=== PATIENT | female | born 1960 | race African-American/Black ===

== ENCOUNTER 2017-05-19 20:44 | Emergency (ER) | payer MEDICAID, OTHER ==
[~2017-05-19] VITALS: Ht 167.6 cm; Wt 50.3 kg
[~2017-05-19 20:44] MED LIST: *INS REG SQ; AMLO10TA2 PO; BENA40TA2 PO; HYDR-4077 PO; HYDR25TA4 PO; INSU100I19 SQ; METF10002 PO; METO-295 PO; NIFE60TA69 PO; NITR100C PO; OMEP20CA10 PO; PRAV40TA3 PO; TRAM50TA2 PO
--- NOTE | 2017-05-19 21:44 | NUR ---
PT BB RA FOR ABDOMINAL PAIN. PER PT NO BM X 1 WEEK. PER EMS BS 300. PT AOX3 RR EVEN AND UNLABORED. NO SOB NOTED. NAD NOTED. NO NVD AT THIS TIME. PT GOWNED AND PLACED ON MONITOR WAITING FOR MD ALARCON.
[2017-05-19] MEDS ORDERED: HYDROMORPHONE INJ 2 MG/ML DISP.SYRIN IV ONE (22:00)
[2017-05-19] MEDS ORDERED: IV NS 0.9% 1,000 ML BAG IV ONE (22:00)
[2017-05-19] MEDS ORDERED: ONDANSETRON HCL/PF 4 MG/2 ML VIAL IVP ONE (22:00)
[2017-05-19] MEDS ORDERED: ONDANSETRON HCL/PF 4 MG/2 ML VIAL ONE (22:15)
[2017-05-19] MEDS ORDERED: HYDROMORPHONE 1 MG/1 ML DISP.SYRIN ONE (22:16)
--- NOTE | 2017-05-19 22:31 | NUR ---
PT TO CT.
[2017-05-19 22:40] LABS: BASOPHILS % (AUTO) 0.1 % (0.0-2.0); EOSINOPHILS # (AUTO) 0.4 /CMM (0.0-0.7); EOSINOPHILS % (AUTO) 3.4 % (0.0-6.0); HEMATOCRIT 43 % (33-45); HEMOGLOBIN 13.6 g/dL (11.5-14.8); LYMPHOCYTES # (AUTO) 1.2 /CMM (0.8-4.8); LYMPHOCYTES % (AUTO) 10.5 % (20.0-44.0); MEAN CORPUSCULAR HEMOGLOBIN 28 PG (26.0-33.0); MEAN CORPUSCULAR HGB CONC 32 g/dl (31.0-36.0); MEAN CORPUSCULAR VOLUME 89 fL (82-100); MONOCYTES # (AUTO) 0.4 /CMM (0.1-1.30); MONOCYTES % (AUTO) 3.2 % (2.0-12.0); NEUTROPHILS # (AUTO) 9.8 /CMM (1.8-8.9); NEUTROPHILS % (AUTO) 82.8 % (43.0-81.0); PLATELET COUNT (AUTO) 262 /CMM (150-450); RDW COEFFICIENT OF VARIATION 14.4 (11.5-15.0); WHITE BLOOD COUNT (AUTO) 11.8 K/uL (4.3-11.0)
--- NOTE | 2017-05-19 22:50 | NUR ---
PT RETURNED FROM CT.
[2017-05-19 22:53] LABS: CALCIUM, SERUM 9.3 mg/dL (8.5-10.1); CREATININE 1.8 mg/dL (0.6-1.3); POTASSIUM 4.5 mmol/L (3.5-5.1)
[2017-05-19 22:56] LABS: INR 0.95 (0.87-1.13); PROTHROMBIN TIME 9.9 SECS (9.5-12.7)
[2017-05-19 23:06] LABS: ALBUMIN 3.4 g/dL (3.4-5.0); BILIRUBIN,DIRECT 0.2 mg/dL (0.0-0.2); BILIRUBIN,TOTAL 0.8 mg/dL (0.2-1.0); TOTAL PROTEIN, SERUM 8.7 g/dL (6.4-8.2)
[2017-05-20] MEDS ORDERED: IV NS 0.9% 1,000 ML BAG IV ONE (00:30)
[2017-05-20] MEDS ORDERED: LORAZEPAM INJ 2 MG/ML VIAL IV ONE (01:00)
[2017-05-20] MEDS ORDERED: LORAZEPAM INJ 2 MG/ML VIAL ONE (01:05)
--- NOTE | 2017-05-20 02:34 | NUR ---
DR. ESCUDERO AT BEDSIDE SPEAKING TO PT AND FAMILY REGARDING RESULTS.
--- NOTE | 2017-05-20 03:04 | NUR ---
IV removed. Catheter intact and site benign. Pressure and 4x4 applied to site. No bleeding noted. Patient discharged to home in stable condition. Written and verbal after care instructions given. Patient verbalizes understanding of instruction. ambulatory with a steady gait, pt w/c per request. instructed not to drive. pt verbalize understanding. accompanied by son
[2017-05-20 03:08] VITALS: BP 124/78
== END 2017-05-20 03:15 | disposition home or self-care (01) ==
LOC: ER 20:45
DX: K56.41 Fecal impaction (principal); E86.0 Dehydration; E11.65 Type 2 diabetes mellitus with hyperglycemia; R10.84 Generalized abdominal pain; M51.26 Other intervertebral disc displacement, lumbar region; M48.061 Spinal stenosis, lumbar region without neurogenic claudication; Z79.4 Long term (current) use of insulin; Z90.89 Acquired absence of other organs; Z88.5 Allergy status to narcotic agent
CPT/HCPCS: 36415; 74176; 80048; 80076; 82962; 83690; 85025; 85730; 96374; 96375; 96376; 99285; A4606; J1170; J2060; J2405; J7030 ×2; Z7610

== ENCOUNTER 2021-03-01 00:24 | Emergency (ER) | payer OTHER ==
[~2021-03-01] VITALS: Ht 162.6 cm; Wt 50.8 kg
[~2021-03-01 00:24] MED LIST changes: +AMLO-213 PO; -AMLO10TA2 PO; -BENA40TA2 PO; +BENA40TA8 PO; +METF-442 PO; -METF10002 PO; +NIFE-34 PO; -NIFE60TA69 PO; -OMEP20CA10 PO; +OMEP20CA15 PO
--- NOTE | 2021-03-01 00:35 | NUR ---
PT BIBPA FROM [facility] FOR C/O WORSENING LOWER BACK AND BLE PAIN. PLACED IN BED 11 ON MONITOR AND PULSE OX. VSS
[2021-03-01] MEDS ORDERED: HYDROMORPHONE 1 MG/1 ML DISP.SYRIN ONE (00:52)
[2021-03-01] MEDS ORDERED: HYDROMORPHONE 1 MG/1 ML DISP.SYRIN IM ONE (01:00)
--- NOTE | 2021-03-01 03:17 | NUR ---
[facility] CALLED FOR TRANSPORT. TRIP# [id number]
--- NOTE | 2021-03-01 03:25 | NUR ---
[facility] CALLED FOR TRANSPORT. ETA 1 HR.
--- NOTE | 2021-03-01 04:04 | NUR ---
CALLED NURSING FACILITY TO UPDATE RN REGARDING PT BEING DISCARGED. RN DID NOT GREY GOODS MARKER. WILL CALL BACK.
--- NOTE | 2021-03-01 04:11 | NUR ---
SPOKE TO COURTNEY LITTLEJOHN FOR DEBORA. AWARE PT WILL BE TRANSFERED BACK.
[2021-03-01 05:12] VITALS: BP 112/72
--- NOTE | 2021-03-01 05:12 | NUR ---
REPORT GIVEN TO EMT, PT TRANSFERED BACK TO FACILITY
[2021-03-01] MEDS ORDERED: ASCO500C17 PO (15:45)
[2021-03-01] MEDS ORDERED: MULT-447 PO (15:45)
[2021-03-01] MEDS ORDERED: SENN-211 PO (15:45)
[2021-03-01] MEDS ORDERED: HYDR100T27 PO (15:45)
[2021-03-01] MEDS ORDERED: TRAM50TA2 PO (15:45)
[2021-03-01] MEDS ORDERED: ONDA4TAB11 PO (15:45)
[2021-03-01] MEDS ORDERED: INSU100V7 SQ (15:45)
[2021-03-01] MEDS ORDERED: BISA10SU11 RC (15:45)
[2021-03-01] MEDS ORDERED: ACET325T53 PO (15:45)
[2021-03-01] MEDS ORDERED: CITR473S PO (15:45)
[2021-03-01] MEDS ORDERED: INSU100V30 IJ (15:45)
[2021-03-01] MEDS ORDERED: LACT1CAP26 PO (15:45)
[2021-03-01] MEDS ORDERED: ZINC220C6 PO (15:45)
[2021-03-01] MEDS ORDERED: AMLO10TA4 PO (15:45)
[2021-03-01] MEDS ORDERED: CALC667C6 PO (15:45)
[2021-03-01] MEDS ORDERED: FERR325T23 PO (15:45)
[2021-03-01] MEDS ORDERED: INSU100V10 SQ (15:45)
[2021-03-01] MEDS ORDERED: GLUC1KIT IJ (15:45)
[2021-03-01] MEDS ORDERED: LABE200T5 PO (15:45)
[2021-03-01] MEDS ORDERED: ATOR40TA PO (15:45)
[2021-03-01] MEDS ORDERED: ASPI-1169 PO (15:45)
[2021-03-01] MEDS ORDERED: FAMO-131 PO (15:45)
== END 2021-03-01 05:13 ==
LOC: ER 00:31
DX: M54.5 Low back pain (principal); G89.29 Other chronic pain; G30.9 Alzheimer's disease, unspecified; F02.80 Dementia in other diseases classified elsewhere, unspecified severity, without behavioral disturbance, psychotic disturbance, mood disturbance, and anxiety; Z20.822 Contact with and (suspected) exposure to COVID-19; M51.36 Other intervertebral disc degeneration, lumbar region; M48.061 Spinal stenosis, lumbar region without neurogenic claudication; E11.52 Type 2 diabetes mellitus with diabetic peripheral angiopathy with gangrene; E11.22 Type 2 diabetes mellitus with diabetic chronic kidney disease; I13.0 Hypertensive heart and chronic kidney disease with heart failure and stage 1 through stage 4 chronic kidney disease, or unspecified chronic kidney disease; N18.9 Chronic kidney disease, unspecified; I50.9 Heart failure, unspecified; Z79.4 Long term (current) use of insulin; K21.9 Gastro-esophageal reflux disease without esophagitis; J44.9 Chronic obstructive pulmonary disease, unspecified; I42.9 Cardiomyopathy, unspecified; G40.909 Epilepsy, unspecified, not intractable, without status epilepticus; Z79.899 Other long term (current) drug therapy
CPT/HCPCS: 71045; 72131; 87426; 96372; 99285; C9803; J1170

== ENCOUNTER 2021-03-01 14:01 | Inpatient (IN) | payer OTHER ==
[~2021-03-01] VITALS: Ht 162.6 cm; Wt 45.8 kg
[2021-03-01] MEDS ORDERED: IV NS 0.9% 500 ML BAG IV ONE (14:30)
[2021-03-01 14:43] LABS: BASOPHILS % (AUTO) 0.4 % (0.0-2.0); EOSINOPHILS % (AUTO) 1.9 % (0.0-6.0); HEMATOCRIT 25 % (33-45); HEMOGLOBIN 7.8 g/dL (11.5-14.8); LYMPHOCYTES # (AUTO) 1.8 K/uL (0.8-4.8); LYMPHOCYTES % (AUTO) 29.4 % (20.0-44.0); MEAN CORPUSCULAR HGB CONC 31 g/dl (31.0-36.0); MEAN CORPUSCULAR VOLUME 87 fL (82-100); MONOCYTES # (AUTO) 0.6 K/uL (0.1-1.30); MONOCYTES % (AUTO) 10.4 % (2.0-12.0); NEUTROPHILS # (AUTO) 3.5 K/uL (1.8-8.9); NEUTROPHILS % (AUTO) 57.9 % (43.0-81.0); PLATELET COUNT (AUTO) 332 K/uL (150-450); WHITE BLOOD COUNT (AUTO) 6.1 K/uL (4.3-11.0)
--- NOTE | 2021-03-01 14:46 | NUR ---
60 years old female sent to er from longterm for abnormal H/H and k level, vital stable lab drawn result pending.
[2021-03-01 14:50] LABS: CALCIUM, SERUM 8.8 mg/dL (8.5-10.1); CARBON DIOXIDE 23 mmol/L (21-32); CHLORIDE 104 mmol/L (98-107); CREATININE 3.7 mg/dL (0.6-1.3); GLUCOSE 109 mg/dL (74-106); POTASSIUM 5.7 mmol/L (3.5-5.1); SODIUM SERUM 136 mmol/L (136-145); UREA NITROGEN, BLOOD 79 mg/dL (7-18)
[2021-03-01 15:02] LABS: ALANINE AMINOTRANSFERASE 15 U/L (12-78); ALBUMIN 2.2 g/dL (3.4-5.0); ALKALINE PHOSPHATASE 93 U/L (46-116); ASPARTATE AMINOTRANSFERASE 15 U/L (15-37); BILIRUBIN,DIRECT 0.1 mg/dL (0.0-0.2); BILIRUBIN,TOTAL 0.2 mg/dL (0.2-1.0); LIPASE 30 U/L (73-393); TOTAL PROTEIN, SERUM 7.6 g/dL (6.4-8.2)
[2021-03-01] MEDS ORDERED: HYDR100T27 PO (15:45)
[2021-03-01] MEDS ORDERED: MULT-447 PO (15:45)
[2021-03-01] MEDS ORDERED: GLUC1KIT IJ (15:45)
[2021-03-01] MEDS ORDERED: INSU100V30 IJ (15:45)
[2021-03-01] MEDS ORDERED: SENN-211 PO (15:45)
[2021-03-01] MEDS ORDERED: ATOR40TA PO (15:45)
[2021-03-01] MEDS ORDERED: FAMO-131 PO (15:45)
[2021-03-01] MEDS ORDERED: INSU100V10 SQ (15:45)
[2021-03-01] MEDS ORDERED: BISA10SU11 RC (15:45)
[2021-03-01] MEDS ORDERED: ACET325T53 PO (15:45)
[2021-03-01] MEDS ORDERED: CALC667C6 PO (15:45)
[2021-03-01] MEDS ORDERED: ASPI-1169 PO (15:45)
[2021-03-01] MEDS ORDERED: INSU100V7 SQ (15:45)
[2021-03-01] MEDS ORDERED: AMLO10TA4 PO (15:45)
[2021-03-01] MEDS ORDERED: ASCO500C17 PO (15:45)
[2021-03-01] MEDS ORDERED: CITR473S PO (15:45)
[2021-03-01] MEDS ORDERED: LACT1CAP26 PO (15:45)
[2021-03-01] MEDS ORDERED: ONDA4TAB11 PO (15:45)
[2021-03-01] MEDS ORDERED: TRAM50TA2 PO (15:45)
[2021-03-01] MEDS ORDERED: LABE200T5 PO (15:45)
[2021-03-01] MEDS ORDERED: ZINC220C6 PO (15:45)
[2021-03-01] MEDS ORDERED: FERR325T23 PO (15:45)
--- NOTE | 2021-03-01 16:00 | NUR ---
MOVE SHEET SUBMITTED.
--- NOTE | 2021-03-01 16:50 | NUR ---
Dr Carrera visitsm patient at bedside awaiting for admit tele bed.
[2021-03-01] MEDS ORDERED: CEFTRIAXONE 1 G in IV D5W 50 ML IV ONE (17:00)
[2021-03-01] MEDS ORDERED: CEFTRIAXONE 1GM BAG (ER ONLY) 50 ML IV ONE (17:04)
[2021-03-01] MEDS ORDERED: MAGNESIUM HYDROXIDE 30 ML UDC PO PRN (17:30)
[2021-03-01] MEDS ORDERED: Z GUARD REMEDY 2 OZ OINT TP PRN (17:30)
[2021-03-01] MEDS ORDERED: ACETAMINOPHEN 325 MG TABLET PO PRN (17:30)
[2021-03-01] MEDS ORDERED: ONDANSETRON HCL/PF 4 MG/2 ML VIAL IVP PRN (17:30)
[2021-03-01] MEDS ORDERED: MAG HYDROX/AL HYDROX/SIMETH 30 ML UDC PO PRN (17:30)
[2021-03-01] MEDS: CEFTRIAXONE 1 G in IV D5W 50 ML IV SCH (17:30)
[2021-03-01] MEDS ORDERED: SODIUM POLYSTYRENE SULFONATE 15 G/60 ML BOTTLE ONE ×2 (18:22→21:52)
[2021-03-01] MEDS: SODIUM POLYSTYRENE SULFONATE 15 G/60 ML BOTTLE PO ONE ×2 (18:23→21:56)
[2021-03-01 18:29] LABS: IRON, SERUM 21 ug/dl (50-175); TOTAL IRON BINDING CAPACITY 179 ug/dl (250-450)
[2021-03-01] MEDS ORDERED: Calcium Gluconate 1GM/10ML 4.65 MEQ in IV D5W 50 ML IV ONE (18:30)
--- NOTE | 2021-03-01 19:03 | NUR ---
BED 101
--- NOTE | 2021-03-01 19:44 | NUR ---
REPORT GIVEN TO ELIZABETH LITTLEJOHN. PATIENT TO BE ADMITTED AT ROOM 111-2.
--- NOTE | 2021-03-01 19:53 | NUR ---
PER YASMANI, COVID SWAB RECEIVED BUT UNABLE TO RUN DUE TO MISSING PAPERWORK. DOCUMENT FOUND AND SENT TO LAB. PER TOYA LITTLEJOHN, PATIENT WAS HERE YESTERDAY, RAPID TEST WAS DONE AND RESULTED NEGATIVE.
--- NOTE | 2021-03-01 20:30 | NUR ---
PT TRANSFERRED TO TELE ROOM 111-1 VIA ACLS PROTOCOL. REPORT GIVEN TO ELIZABETH LITTLEJOHN FOR CONTINUATION OF CARE
--- NOTE | 2021-03-01 20:30 | NUR ---
Fundraising Officer notes Admitted 60 y/o female a/ox4 able to make needs known [facility] ,on room air sating 100% on room air tele monitor at sr on the monitor .no sob no distress noted , under the service of dr busch. all needs attended too .v/s stable afebrile. admission routine care rendered, with admitting dx of acute renal failure.on ivf of 1/2 ns at 75cc/hr infusing well with left fa g#20 intact and patent , turn and reposition ,all due meds given as ordered .potassium of 5.7 kayexelate 30 grams given as ordered . will continue to monitor pts.
[2021-03-01 20:55] VITALS: BP 145/63
[2021-03-01] MEDS: IV 1/2NS 1000 ML 1,000 ML IV PRN (21:12)
[2021-03-01] MEDS: SODIUM POLYSTYRENE SULF. PWD 15 GM UDC PO ONE (21:16)
[2021-03-01] MEDS: CALCIUM ACETATE 667 MG TABLET PO SCH (21:16)
[2021-03-01] MEDS: TRAMADOL HCL 50 MG TABLET PO PRN (21:24)
[2021-03-02] VITALS: BP 129/71
[2021-03-02 04:00] VITALS: BP 126/40
[2021-03-02 06:38] LABS: BASOPHILS # (AUTO) 0.1 K/uL (0.0-0.2); BASOPHILS % (AUTO) 0.9 % (0.0-2.0); EOSINOPHILS % (AUTO) 3.1 % (0.0-6.0); HEMATOCRIT 23 % (33-45); HEMOGLOBIN 7.3 g/dL (11.5-14.8); LYMPHOCYTES # (AUTO) 1.6 K/uL (0.8-4.8); LYMPHOCYTES % (AUTO) 27.9 % (20.0-44.0); MEAN CORPUSCULAR HGB CONC 32 g/dl (31.0-36.0); MEAN CORPUSCULAR VOLUME 86 fL (82-100); MONOCYTES # (AUTO) 0.9 K/uL (0.1-1.30); MONOCYTES % (AUTO) 14.7 % (2.0-12.0); NEUTROPHILS # (AUTO) 3.1 K/uL (1.8-8.9); NEUTROPHILS % (AUTO) 53.4 % (43.0-81.0); PLATELET COUNT (AUTO) 320 K/uL (150-450); WHITE BLOOD COUNT (AUTO) 5.9 K/uL (4.3-11.0)
--- NOTE | 2021-03-02 06:40 | NUR ---
SENIOR JAVA ARCHITECT NOTES NO DEBORA AT TIME ENDORSE TO RN DAY SHIFT FOR CONTINUITY OF CARE.
--- NOTE | 2021-03-02 07:00 | NUR ---
RN NOTES RECEIVED PT ON BED, A/Ox3-4, ON RA, NO RESPIRATORY DISTRESS NOTED, ON TELE SR HR IN 80'S , IVF 1/2 NS AT 75CC /HR RUNNING VIA L FA IV SITE G 20 , SITE CLEAN, DRY AND INTACT, SR UP x3, CALL LIGHT WITHIN EASY REACH, BED LOCKED AND IN LOWEST POSITION, CONTINUE TO MONITOR .
[2021-03-02 07:04] LABS: ALBUMIN 2.2 g/dL (3.4-5.0); BILIRUBIN,TOTAL 0.2 mg/dL (0.2-1.0); CALCIUM, SERUM 8.8 mg/dL (8.5-10.1); CREATININE 3.5 mg/dL (0.6-1.3); MAGNESIUM 2.5 mg/dL (1.8-2.4); PHOSPHORUS 4.8 mg/dL (2.5-4.9); POTASSIUM 5.6 mmol/L (3.5-5.1); TOTAL PROTEIN, SERUM 7.1 g/dL (6.4-8.2)
[2021-03-02 07:11] LABS: THYROID STIMULATING HORMONE 2.804 uIU/mL (0.358-3.74)
[2021-03-02 08:00] VITALS: BP 105/58
--- NOTE | 2021-03-02 08:01 | NUR ---
WOUND CARE CONSULT: REVIEWED CHART, NURSING DOCUMENTATION AND PHOTOS WHICH INDICATE SACRAL SCARRING AND LOWER EXTREMITY WOUNDS, PRESENT ON ADMISSION. DR CHAUDHARY NOTIFIED OF DPM CONSULT REQUEST. RECOMMENDATIONS MADE FOR SKIN PROTECTION. DISCUSSED WITH NURSING STAFF. MD IN AGREEMENT WITH PLAN OF CARE.
[2021-03-02] MEDS: ASPIRIN 81 MG TAB.CHEW PO SCH (08:25)
[2021-03-02] MEDS: ZINC SULFATE 220 MG CAPSULE PO SCH (08:25)
[2021-03-02] MEDS: ACIDOPHILUS/BULGARICUS 1 EACH TAB.CHEW PO SCH (08:25)
[2021-03-02] MEDS: CALCIUM ACETATE 667 MG TABLET PO SCH ×3 (08:26→17:34)
[2021-03-02] MEDS: SENNOSIDES 8.6 MG TABLET PO SCH (08:26)
[2021-03-02] MEDS: FERROUS SULFATE (325 MG) 325 MG/TAB TABLET PO SCH (08:26)
[2021-03-02] MEDS: MULTIVIT W/MINERALS 1 TAB TABLET PO SCH (08:26)
[2021-03-02] MEDS: PANTOPRAZOLE 40 MG VIAL IV SCH (08:26)
[2021-03-02] MEDS: SODIUM POLYSTYRENE SULF. PWD 15 GM UDC PO ONE (08:30)
[2021-03-02] MEDS: INSULIN GLARGINE, 100 UNIT/ML CARTRIDGE SQ SCH ×2 (08:30→16:45)
[2021-03-02] MEDS: AMLODIPINE BESYLATE 10 MG TABLET PO SCH (09:00)
[2021-03-02] MEDS: LABETALOL HCL (100MG) 100 MG TABLET PO SCH ×2 (09:00→16:43)
[2021-03-02] MEDS ORDERED: FAMOTIDINE (20 MG) 20 MG TABLET PO SCH (09:00)
[2021-03-02] MEDS: IV 1/2NS 1000 ML 1,000 ML IV PRN ×2 (09:16→22:31)
[2021-03-02] MEDS ORDERED: SODIUM POLYSTYRENE SULFONATE 15 G/60 ML BOTTLE PO ONE (10:30)
[2021-03-02 10:50] LABS: OCCULT BLOOD STOOL POSITIVE (NEGATIVE)
[2021-03-02 12:00] VITALS: BP 99/54
[2021-03-02] MEDS: ENSURE CLEAR 237 ML LIQUID (MIX BERRY) PO SCH ×2 (12:13→16:45)
--- NOTE | 2021-03-02 14:00 | NUR ---
RN NOTES DR NGUYEN AND DR WEEKS NOTIFIED REGARDING ARTERIAL STUDY .
[2021-03-02] MEDS: MINERAL OIL/PETROLATUM,WHITE 120 GM JAR TP PRN (14:46)
[2021-03-02] MEDS: CADEXOMER IODINE 40 GM TUBE TP SCH (14:46)
[2021-03-02 16:00] VITALS: BP 114/66
[2021-03-02] MEDS: CEFTRIAXONE 1 G in IV D5W 50 ML IV SCH (16:43)
--- NOTE | 2021-03-02 18:23 | NUR ---
RN NOTES NO SIGNIFICANT CHANGES NOTED ON THIS SHIFT, WILL ENDORSE TO NIGHT SHIT NURSE FOR CONTINUITY OF CARE .
[2021-03-02 20:00] VITALS: BP 114/66
[2021-03-03] VITALS: BP 124/52
[2021-03-03 01:45] VITALS: BP 121/58
--- NOTE | 2021-03-03 01:50 | NUR ---
ORDER ENTRYHEAVY CLEANER NOTE PATIENT ARRIVED FROM [place], ALERT/ORIENTED X 4, PT ABLE TO MAKE NEEDS KNOWN. NO REPORTS OF PAIN OR DISCOMFORT AT THIS TIME. PT STABLE ON RA, NO S/S OF DISTRESS OR SOB NOTED, BREATHING EVEN AND UNLABORED. PT ON TELEMONITORING, SINUS RHYTHM. RIGHT FOREARM #20G INTACT AND FLUSHING WELL, RUNNING 1/2 NS @ 75 ML/HR. PATIENT ON CLEAR LIQUID DIET. PATIENT BEDBOUND. PT HAS LEFT BIG TOE AMPUTATION, BILATERAL HEEL DTI, HEELS OFFLOADED, DRESSING CLEAN DRY AND INTACT. SAFETY MEASURES IN PLACE: CALL LIGHT WITHIN REACH, BED LOCKED IN LOW POSITION, BED ALARM ON, SIDE RAILS UP X 3. WILL CONTINUE TO MONITOR PATIENT
--- NOTE | 2021-03-03 03:20 | NUR ---
RN notes Alert and oriented x 4. Able to communicate needs verbally. Vital signs wnl. Kept clean and comfortable. Had 1 large bm. No significant change of condition. Transferred to [facility], endorsed to ANNETTA lucio in stable condition.
[2021-03-03 04:00] VITALS: BP 130/65
--- NOTE | 2021-03-03 07:47 | NUR ---
LEADERSHIP DEVELOPMENT MANAGER NOTES PATIENT REMAINED STABLE THROUGHOUT REST OF SHIFT. NO S/S OF DISTRESS OR SOB NOTED. PATIENT NPO FOR EGD THIS AFTERNOON. RIGHT FA RUNNING 1/2 NS @ 75 ML/HR. PATIENT NEEDS MET THROUGHOUT SHIFT. SAFETY MEASURES IN PLACE: CALL LIGHT WITHIN REACH, BED LOCKED IN LOW POSITION, SIDE RAILS UP X 3, BED ALARM ON. WILL ENDORSE TO DAY SHIFT NURSE FOR CONTINUITY OF CARE
[2021-03-03 08:00] VITALS: BP 134/62
[2021-03-03] MEDS: CALCIUM ACETATE 667 MG TABLET PO SCH ×3 (08:00→18:15)
--- NOTE | 2021-03-03 08:00 | NUR ---
RN OPENING NOTE PT AWAKE IN BED RESTING. ON RA WITH NO SOB OR RESPIRATORY DISTRESS PRESENT. A/O X4 AND KAZAKH SPEAKING. COMPLAINT OF PAIN IN ABD PRESENT, PAIN MEDS GIVEN. NO COMPLAINT OF NAUSEA. ON CENTRAL STERILE TECHNICIAN. NO EDEMA PRESENT. ON BEDREST. WOUNDS PRESENT, PICTURES IN CHART, WOUND CARE TO BE GIVEN. NPO DUE TO UPCOMING PROCEDURE. IV PRESENT ON R FA 20G AND FLUSHES WELL. LABS AND ORDERS REVIEWED. SAFETY MEASURES IN PLACE. SIDE RAILS RAISED. BED LOWERED. CALL LIGHT WITHIN REACH. WILL CONTINUE TO MONITOR.
[2021-03-03 08:21] LABS: BILIRUBIN,URINE NEGATIVE (NEGATIVE); COLOR,URINE YELLOW (YELLOW); LEUKOCYTE ESTERASE ,URINE LARGE (NEGATIVE); NITRITE, URINE NEGATIVE (NEGATIVE); PROTEIN,URINE 100 mg/dl (NEGATIVE); UGLUCOSE NEGATIVE (NEGATIVE); UROBILINOGEN,URINE 0.2 EU/dL (0.2)
[2021-03-03 08:24] LABS: BACTERIA,URINE 1+ /HPF (None Seen); RBC,URINE 21-50 /HPF (0-2); SQUAMOUS EPITHELIAL CELL,UR Few /HPF (None Seen); WBC,URINE TOO NUMEROUS TO COUN /HPF (0-3)
[2021-03-03] MEDS: ENSURE CLEAR 237 ML LIQUID (MIX BERRY) PO SCH ×3 (08:39→16:25)
[2021-03-03] MEDS: FERROUS SULFATE (325 MG) 325 MG/TAB TABLET PO SCH (08:39)
[2021-03-03] MEDS: ACIDOPHILUS/BULGARICUS 1 EACH TAB.CHEW PO SCH (08:39)
[2021-03-03] MEDS: AMLODIPINE BESYLATE 10 MG TABLET PO SCH (08:39)
[2021-03-03] MEDS: ZINC SULFATE 220 MG CAPSULE PO SCH (08:40)
[2021-03-03] MEDS: LABETALOL HCL (100MG) 100 MG TABLET PO SCH ×2 (08:40→16:25)
[2021-03-03] MEDS: MULTIVIT W/MINERALS 1 TAB TABLET PO SCH (08:40)
[2021-03-03] MEDS: SENNOSIDES 8.6 MG TABLET PO SCH (08:40)
[2021-03-03] MEDS: ASPIRIN 81 MG TAB.CHEW PO SCH (08:51)
[2021-03-03] MEDS: VANCOMYCIN 500 MG in IV D5W 100ml IV SCH (08:53)
[2021-03-03] MEDS: PANTOPRAZOLE 40 MG VIAL IV SCH (08:53)
[2021-03-03] MEDS: CADEXOMER IODINE 40 GM TUBE TP SCH ×2 (09:00→09:11)
[2021-03-03] MEDS: INSULIN GLARGINE, 100 UNIT/ML CARTRIDGE SQ SCH ×2 (09:00→16:25)
[2021-03-03] MEDS: TRAMADOL HCL 50 MG TABLET PO PRN ×2 (09:08→19:38)
[2021-03-03] MEDS: MINERAL OIL/PETROLATUM,WHITE 120 GM JAR TP PRN (09:11)
[2021-03-03] MEDS: KETOCONAZOLE 2% CREAM 15 GM TUBE TP SCH (09:12)
[2021-03-03 12:00] VITALS: BP 132/67
[2021-03-03] MEDS: CEFTRIAXONE 1 G in IV D5W 50 ML IV SCH (16:25)
[2021-03-03] MEDS ORDERED: DEXTROSE 50%-WATER 50 ML DISP.SYRIN ONE (16:57)
--- NOTE | 2021-03-03 18:42 | NUR ---
RN CLOSING NOTE PT AWAKE IN BED RESTING. ON RA WITH NO SOB OR RESPIRATORY DISTRESS PRESENT. A/O X4 AND NORWEGIAN SPEAKING. NO COMPLAINT OF PAIN. NO COMPLAINT OF NAUSEA. ON CRYPTOLOGIC LINGUIST. NO EDEMA PRESENT. ON BEDREST. WOUNDS PRESENT, PICTURES IN CHART, WOUND CARE GIVEN. EGD DONE TODAY BY DR ALVARADO. IV PRESENT ON R FA 20G AND FLUSHES WELL. LABS AND ORDERS REVIEWED. SAFETY MEASURES IN PLACE. SIDE RAILS RAISED. BED LOWERED. CALL LIGHT WITHIN REACH. REPORT TO BE GIVEN TO NIGHT NURSE FOR DEBORA.
--- NOTE | 2021-03-03 19:38 | NUR ---
BROILER CHEF OR COOK NOTES PAIN MANAGEMENT C/O PAIN VIA LEFT FOOT 12/21 ON PAIN SCALE,ULTRAM 50MG PO GIVEN PO ORDERED
--- NOTE | 2021-03-03 19:45 | NUR ---
HOTEL SERVICES SALES REPRESENTATIVE NOTES RECEIVED ON BED A/O X4,NO SOB,S/P EGD,HAVING DRINKS AT THIS TIME,TOLERATED WELL.LEFT FOOT DRESSING INTACT AND DRY.SEEN BY BONNIE BEAL,AWAITING FOR ORDERS,WITH SALINE LOCK RFA INTACT AND PATENT.CALL LIGHT IN REACH,NEEDS ANTICIPATED.
--- NOTE | 2021-03-03 19:45 | NUR ---
OUTSIDE PLANT ENGINEER NOTES SR WITH BBB, RATE OF 100
[2021-03-03 20:00] VITALS: BP 146/80
[2021-03-04] VITALS: BP 142/83
[2021-03-04] MEDS: TRAMADOL HCL 50 MG TABLET PO PRN ×2 (00:42→18:19)
--- NOTE | 2021-03-04 00:42 | NUR ---
CAPPER MACHINE OPERATOR NOTES PAIN MANAGEMENT C/O LEFT FOOT PAIN 7/10 ON PAIN SCALE,ULTRAM 50MG PO GIVEN PER PATIENT REQUEST.
[2021-03-04 04:00] VITALS: BP 146/82
--- NOTE | 2021-03-04 06:22 | NUR ---
LOKIE ENGINEER NOTES FAIRLY RESTED AT NIGHT,PAIN TOLERABLE THIS TIME,BILATERAL FOOT ELEVATED ON PILLOWS AT ALL TIMES.EGD RESULT SHOWS GASTRITIS.NO ACTIVE BLEEDING NOTED.IN NO ACUTE DISTRESS.WILL ENDORSE TO DAY NURSE FOR DEBORA.
[2021-03-04 08:00] VITALS: BP 144/68
--- NOTE | 2021-03-04 08:00 | NUR ---
RN OPENING NOTE PT AWAKE IN BED RESTING. ON RA WITH NO SOB OR RESPIRATORY DISTRESS PRESENT. A/O X4 AND UKRAINIAN SPEAKING. COMPLAINT OF PAIN IN ABD PRESENT, PAIN MEDS GIVEN. NO COMPLAINT OF NAUSEA. ON LIQUID CENTER ASSEMBLER. NO EDEMA PRESENT. ON BEDREST. WOUNDS PRESENT, PICTURES IN CHART, WOUND CARE TO BE GIVEN. NPO DUE TO UPCOMING PROCEDURE. IV PRESENT ON R FA 20G AND FLUSHES WELL. LABS AND ORDERS REVIEWED. SAFETY MEASURES IN PLACE. SIDE RAILS RAISED. BED LOWERED. CALL LIGHT WITHIN REACH. WILL CONTINUE TO MONITOR.
[2021-03-04 08:01] LABS: CALCIUM, SERUM 7.4 mg/dL (8.5-10.1); CREATININE 2.1 mg/dL (0.6-1.3); POTASSIUM 3.2 mmol/L (3.5-5.1)
[2021-03-04] MEDS: INSULIN GLARGINE, 100 UNIT/ML CARTRIDGE SQ SCH ×2 (09:00→17:00)
[2021-03-04] MEDS: ENSURE CLEAR 237 ML LIQUID (MIX BERRY) PO SCH ×3 (09:19→17:14)
[2021-03-04] MEDS: PANTOPRAZOLE 40 MG VIAL IV SCH (09:19)
[2021-03-04] MEDS: ASPIRIN 81 MG TAB.CHEW PO SCH (09:19)
[2021-03-04] MEDS: ACIDOPHILUS/BULGARICUS 1 EACH TAB.CHEW PO SCH (09:20)
[2021-03-04] MEDS: MULTIVIT W/MINERALS 1 TAB TABLET PO SCH (09:20)
[2021-03-04] MEDS: FERROUS SULFATE (325 MG) 325 MG/TAB TABLET PO SCH (09:20)
[2021-03-04] MEDS: SENNOSIDES 8.6 MG TABLET PO SCH (09:20)
[2021-03-04] MEDS: AMLODIPINE BESYLATE 10 MG TABLET PO SCH (09:20)
[2021-03-04] MEDS: ZINC SULFATE 220 MG CAPSULE PO SCH (09:20)
[2021-03-04] MEDS: LABETALOL HCL (100MG) 100 MG TABLET PO SCH ×2 (09:22→17:00)
[2021-03-04] MEDS: CALCIUM ACETATE 667 MG TABLET PO SCH ×3 (09:23→17:16)
[2021-03-04] MEDS: MINERAL OIL/PETROLATUM,WHITE 120 GM JAR TP PRN (09:29)
[2021-03-04] MEDS: CADEXOMER IODINE 40 GM TUBE TP SCH (09:29)
[2021-03-04] MEDS: KETOCONAZOLE 2% CREAM 15 GM TUBE TP SCH (09:29)
[2021-03-04] MEDS ORDERED: POTASSIUM CHLORIDE 20 MEQ POWDER PACKET PO SCH (09:30)
--- NOTE | 2021-03-04 09:41 | NUR ---
RN NOTE INSULIN LANTUS 10 U NOT GIVEN TO PT. PT HAD 25% INTAKE OF BREAKFAST AND HAS BG OF 72. CN AND AWARE. WILL CONTINUE TO MONITOR.
[2021-03-04 16:00] VITALS: BP_SYST 88; BP_SYST 96; BP_DIAS 50; BP_DIAS 55
--- NOTE | 2021-03-04 16:00 | NUR ---
RN NOTE LANTUS NOT GIVEN TO PT, BG OF 98. PT INTAKE OF DINNER IS 25%. TOPROLOL NOT GIVEN TO DUE TO BP OF 88/68, HR OF 88. VERIFIED WITH MANUAL BP. NO DISTRESS NOTED FROM PT. CN AWARE. WILL CONTINUE TO MONITOR.
[2021-03-04] MEDS: CEFTRIAXONE 1 G in IV D5W 50 ML IV SCH (17:18)
--- NOTE | 2021-03-04 18:26 | NUR ---
RN CLOSING NOTE PT AWAKE IN BED RESTING. ON RA WITH NO SOB OR RESPIRATORY DISTRESS PRESENT. A/O X4 AND SAMI SPEAKING. PAIN PRESENT AND PAIN MEDS GIVEN. NO COMPLAINT OF NAUSEA. NO WOOD CALKER PRESENT. NO EDEMA PRESENT. ON BEDREST. WOUNDS PRESENT, PICTURES IN CHART, WOUND CARE GIVEN. IV PRESENT ON R FA 20G AND FLUSHES WELL. LABS AND ORDERS REVIEWED. SAFETY MEASURES IN PLACE. SIDE RAILS RAISED. BED LOWERED. CALL LIGHT WITHIN REACH. REPORT TO BE GIVEN TO NIGHT NURSE FOR DEBORA.
[2021-03-04 20:00] VITALS: BP_SYST 114; BP_SYST 144; BP_DIAS 52
--- NOTE | 2021-03-04 20:00 | NUR ---
MS RN NOTES RECEIVED LYING COMFORTABLY ON BED SLEEPING,AROUSABLE TO VERBAL STIMULI,,BREATHING REGULAR,NOT IN ANY FORM OF DISTRESS.IVF 1/2 NS AT 75ML/HR RATE INFUSING WELL ON RIGHT ARM SALINE LOCK.SITE REMAINS PATENT.CALL LIGHT IN REACH,NEEDS ANTICIPATED.
--- NOTE | 2021-03-04 20:20 | NUR ---
MS RN NOTES VANCOMYCIN TROUGH 5,DOSE ADMINISTERED
[2021-03-04] MEDS: VANCOMYCIN 500 MG in IV D5W 100ml IV SCH (21:04)
[2021-03-05] MEDS: TRAMADOL HCL 50 MG TABLET PO PRN (00:03)
--- NOTE | 2021-03-05 00:03 | NUR ---
MS RN NOTES AWAKE,C/O LEFT FOOT PAIN 7/10 ON PAIN SCALE,MEDICATED WITH ULTRAM 50MG PO ORDERED. DRESSING CHANGE DONE ON BILATERAL FOOT.
--- NOTE | 2021-03-05 06:29 | NUR ---
MS RN NOTES PAIN MANAGEMENT EFFECTIVE,ABLE TO SLEEP,DRESSING TO BILATERAL FOOT INTACT AND DRY.POSSIBLE D/C HOME TODAY.
--- NOTE | 2021-03-05 07:20 | NUR ---
MS RN OPENING NOTES PT RECEIVED IN BED AWAKE AND WATCHING TV. A/O X3. ABLE TO MAKE NEEDS KNOWN, DENIES PAIN OR ANY DISCOMFORTS AT THIS TIME. ON ROOM AIR, BREATHING EVEN AND UNLABORED. . IV ACCESS ON RFA G#20 INTACT AND PATENT, IVF ON 07/15 NS @ 75ML/HR INFUSING WELL, NO S/S OF INFILTRATIONS AT SITE NOTED. SAFETY MEASURES IN PLACE: BED IN LOWEST LOCKED POSITION, SIDE-RAILS UP X2 AND CALL LIGHT WITHIN REACH. WILL CONTINUE TO MONITOR.
[2021-03-05 07:25] LABS: CALCIUM, SERUM 7.6 mg/dL (8.5-10.1); POTASSIUM 3.4 mmol/L (3.5-5.1)
[2021-03-05 08:00] VITALS: BP 107/46
[2021-03-05] MEDS: CALCIUM ACETATE 667 MG TABLET PO SCH ×3 (08:39→17:08)
[2021-03-05] MEDS: MULTIVIT W/MINERALS 1 TAB TABLET PO SCH (08:39)
[2021-03-05] MEDS: ENSURE CLEAR 237 ML LIQUID (MIX BERRY) PO SCH ×3 (08:40→17:08)
[2021-03-05] MEDS: SENNOSIDES 8.6 MG TABLET PO SCH (08:40)
[2021-03-05] MEDS: ACIDOPHILUS/BULGARICUS 1 EACH TAB.CHEW PO SCH (08:40)
[2021-03-05] MEDS: FERROUS SULFATE (325 MG) 325 MG/TAB TABLET PO SCH (08:40)
[2021-03-05] MEDS: ASPIRIN 81 MG TAB.CHEW PO SCH (08:40)
[2021-03-05] MEDS: PANTOPRAZOLE 40 MG VIAL IV SCH (08:40)
[2021-03-05] MEDS: ZINC SULFATE 220 MG CAPSULE PO SCH (08:40)
[2021-03-05] MEDS: AMLODIPINE BESYLATE 10 MG TABLET PO SCH (08:42)
[2021-03-05] MEDS: LABETALOL HCL (100MG) 100 MG TABLET PO SCH ×2 (08:50→16:51)
[2021-03-05] MEDS: KETOCONAZOLE 2% CREAM 15 GM TUBE TP SCH (09:00)
[2021-03-05] MEDS: CADEXOMER IODINE 40 GM TUBE TP SCH (09:24)
[2021-03-05] MEDS: INSULIN GLARGINE, 100 UNIT/ML CARTRIDGE SQ SCH ×2 (09:26→16:49)
[2021-03-05] MEDS ORDERED: POTASSIUM CHLORIDE 20 MEQ TAB.PRT.SR PO ONE (11:00)
[2021-03-05] MEDS: IV 1/2NS 1000 ML 1,000 ML IV PRN (11:12)
[2021-03-05] MEDS ORDERED: VANCOMYCIN 500 MG in IV D5W 100ml IV SCH (15:00)
--- NOTE | 2021-03-05 15:44 | NUR ---
RN NOTES PT FOR DISCHARGE TO [facility] THIS AFTERNOON, CALLED AND REPORT GIVEN TO SIMON POLK. ALSO CALLED PT'S BROTHER LAURIE AT [facility] # [phone] AND HE SAID THAT HE WILL CALL AND INFORM HIS NEPHEW MAIKOL ESTEVES.
[2021-03-05 16:00] VITALS: BP 147/88
[2021-03-05] MEDS: CEFTRIAXONE 1 G in IV D5W 50 ML IV SCH (16:40)
[2021-03-05 16:51] VITALS: BP 147/88
--- NOTE | 2021-03-05 18:28 | NUR ---
RN DISCHARGED NOTES PATIENT DISCHARGED TO [facility]. PT IS A/O X3-4. ABLE TO MAKE NEEDS KNOWN. V/S TAKEN STABLE AND RECORDED. ALL NEEDS AND CARE PROVIDED WELL. PHOTOS OF SKIN ISSUES TAKEN LAST NIGHT. ALL BELONGINGS ACCOUNTED FOR AND SIGNED FORM. IV ACCESS ON LFA G#[address], PT WILL CONTINUE TO TAKE IV ABX'S AT THE [facility]. CALLED AND REPORT GIVEN TO SNF'S RNS JAM EARLIER, VERBALIZED UNDERSTANDING. PT LEFT UNIT AT 1825 VIA GURNEY ACCOMPANIED BY 2 EMT'S FROM [facility]. CHARGE NURSE AWARE OF DISCHARGE.
== END 2021-03-05 18:30 | DRG 241 ==
LOC: ER 14:11 → TELE1 20:13 → TELE 03-03 01:43 → MED 03-04 11:58
PROVIDERS: ADMIT Internal Medicine; ATTEND Internal Medicine
PROC: 0DB68ZX Excision of Stomach, Via Natural or Artificial Opening Endoscopic, Diagnostic (ICD-10-PCS; principal; 2021-03-03)
DX: K25.9 Gastric ulcer, unspecified as acute or chronic, without hemorrhage or perforation (principal); N17.0 Acute kidney failure with tubular necrosis; I42.9 Cardiomyopathy, unspecified; I13.0 Hypertensive heart and chronic kidney disease with heart failure and stage 1 through stage 4 chronic kidney disease, or unspecified chronic kidney disease; E11.52 Type 2 diabetes mellitus with diabetic peripheral angiopathy with gangrene; R64 Cachexia; D63.8 Anemia in other chronic diseases classified elsewhere; I50.9 Heart failure, unspecified; I96 Gangrene, not elsewhere classified; N39.0 Urinary tract infection, site not specified; L97.519 Non-pressure chronic ulcer of other part of right foot with unspecified severity; L89.891 Pressure ulcer of other site, stage 1; I48.91 Unspecified atrial fibrillation; B35.1 Tinea unguium; G40.909 Epilepsy, unspecified, not intractable, without status epilepticus; K29.70 Gastritis, unspecified, without bleeding; E87.5 Hyperkalemia; N18.9 Chronic kidney disease, unspecified; Z20.822 Contact with and (suspected) exposure to COVID-19; E11.22 Type 2 diabetes mellitus with diabetic chronic kidney disease; F02.80 Dementia in other diseases classified elsewhere, unspecified severity, without behavioral disturbance, psychotic disturbance, mood disturbance, and anxiety; G30.9 Alzheimer's disease, unspecified; K21.9 Gastro-esophageal reflux disease without esophagitis; Z89.412 Acquired absence of left great toe; Z89.421 Acquired absence of other right toe(s); Z88.5 Allergy status to narcotic agent; Z90.49 Acquired absence of other specified parts of digestive tract; Z79.4 Long term (current) use of insulin; Z79.82 Long term (current) use of aspirin; Z79.899 Other long term (current) drug therapy; L97.529 Non-pressure chronic ulcer of other part of left foot with unspecified severity; E11.621 Type 2 diabetes mellitus with foot ulcer; F09 Unspecified mental disorder due to known physiological condition; N12 Tubulo-interstitial nephritis, not specified as acute or chronic; M86.672 Other chronic osteomyelitis, left ankle and foot; E11.69 Type 2 diabetes mellitus with other specified complication; F17.200 Nicotine dependence, unspecified, uncomplicated; J44.9 Chronic obstructive pulmonary disease, unspecified; J98.11 Atelectasis
CPT/HCPCS: 36415; 71045-TC; 73630-TC; 80048-TC; 80053-TC; 80061-TC; 80076-TC; 80202-TC; 81001; 82272-TC; 82570-TC; 82962-TC; 83540-TC; 83690-TC; 83735-TC; 84100-TC; 84300-TC; 84443-TC; 84484-TC; 85025-TC; 87040-TC; 87081-TC; 87086-TC; 93970-TC; C9113; G0378; J0610; J0696; J1815; J2704; J3370; J3490; J7040; J7060; U0003

== ENCOUNTER 2021-04-05 03:32 | Inpatient (IN) | payer OTHER ==
[~2021-04-05] VITALS: Ht 154.9 cm; Wt 65.8 kg
[2021-04-05] VITALS (30 sets, daily range): BP systolic 68–120; BP diastolic 33–81
[~2021-04-05 03:32] MED LIST changes: -*INS REG SQ; +ACET325T53 PO; -AMLO-213 PO; +AMLO10TA4 PO; +ASCO500C17 PO; +ASPI-1169 PO; +ATOR40TA PO; -BENA40TA8 PO; +BISA10SU11 RC; +CALC667C6 PO; +CITR473S PO; +FAMO-131 PO; +FERR325T23 PO; +GLUC1KIT IJ; -HYDR-4077 PO; +HYDR100T27 PO; -HYDR25TA4 PO; -INSU100I19 SQ; +INSU100V10 SQ; +INSU100V30 IJ; +INSU100V7 SQ; +LABE200T5 PO; +LACT1CAP26 PO; -METF-442 PO; -METO-295 PO; +MULT-447 PO; -NIFE-34 PO; -NITR100C PO; -OMEP20CA15 PO; +ONDA4TAB11 PO; -PRAV40TA3 PO; +SENN-211 PO; +ZINC220C6 PO
--- NOTE | 2021-04-05 03:36 | NUR ---
SON CONTACT INFO MAIKOL ESTEVES
--- NOTE | 2021-04-05 03:45 | NUR ---
BIBRA 889 C/O CHRONIC BACK PAIN S/P BACK SURGERY X 2 MONTHS AGO. PT ALERT AND ORIENTED X3. NON AMBULATORY, WITH NON LABORED BREATHING.
[2021-04-05] MEDS ORDERED: IV NS 0.9% 500 ML BAG IV ONE (04:00)
[2021-04-05] MEDS ORDERED: LORAZEPAM INJ 2 MG/ML VIAL IV ONE (04:00)
[2021-04-05] MEDS ORDERED: HYDROMORPHONE INJ 2 MG/ML DISP.SYRIN IV ONE (04:00)
[2021-04-05] MEDS ORDERED: ASPIRIN 81 MG TAB.CHEW PO ONE (04:00)
[2021-04-05] MEDS ORDERED: ONDANSETRON HCL/PF 4 MG/2 ML VIAL IVP ONE (04:00)
[2021-04-05] MEDS ORDERED: ONDANSETRON HCL/PF 4 MG/2 ML VIAL ONE (04:13)
[2021-04-05] MEDS ORDERED: ASPIRIN 81 MG TAB.CHEW ONE (04:14)
[2021-04-05] MEDS ORDERED: HYDROMORPHONE 1 MG/1 ML DISP.SYRIN ONE (04:14)
[2021-04-05] MEDS ORDERED: LORAZEPAM INJ 2 MG/ML VIAL ONE (04:15)
--- NOTE | 2021-04-05 04:19 | NUR ---
LINE ESTABLISHED BLOOD TAKEN AND SENT TO LAB
[2021-04-05 04:23] LABS: BASOPHILS # (AUTO) 0.1 K/uL (0.0-0.2); EOSINOPHILS % (AUTO) 0.7 % (0.0-6.0); HEMATOCRIT 29 % (33-45); HEMOGLOBIN 9.1 g/dL (11.5-14.8); LYMPHOCYTES # (AUTO) 1.9 K/uL (0.8-4.8); LYMPHOCYTES % (AUTO) 15.5 % (20.0-44.0); MEAN CORPUSCULAR HGB CONC 31 g/dl (31.0-36.0); MEAN CORPUSCULAR VOLUME 87 fL (82-100); MONOCYTES # (AUTO) 0.8 K/uL (0.1-1.30); MONOCYTES % (AUTO) 6.5 % (2.0-12.0); NEUTROPHILS # (AUTO) 9.3 K/uL (1.8-8.9); NEUTROPHILS % (AUTO) 76.3 % (43.0-81.0); PLATELET COUNT (AUTO) 522 K/uL (150-450); RED BLOOD CELL COUNT(AUTO) 3.38 MIL/uL (4.0-5.2); WHITE BLOOD COUNT (AUTO) 12.1 K/uL (4.3-11.0)
--- NOTE | 2021-04-05 04:30 | NUR ---
PT TAKEN TO RADIOLOGY FOR THORACIC CT
[2021-04-05 04:36] LABS: CALCIUM, SERUM 8.9 mg/dL (8.5-10.1); CARBON DIOXIDE 29 mmol/L (21-32); CHLORIDE 106 mmol/L (98-107); CREATININE 1.8 mg/dL (0.6-1.3); GLUCOSE 140 mg/dL (74-106); POTASSIUM 5.4 mmol/L (3.5-5.1); SODIUM SERUM 142 mmol/L (136-145); UREA NITROGEN, BLOOD 28 mg/dL (7-18)
--- NOTE | 2021-04-05 04:42 | NUR ---
PT BACK TO ED BED 7
[2021-04-05 04:44] LABS: D-DIMER 2.35 mg/L(FEU (0.17-0.50)
[2021-04-05 04:47] LABS: ALANINE AMINOTRANSFERASE 15 U/L (12-78); ALBUMIN 1.9 g/dL (3.4-5.0); ALKALINE PHOSPHATASE 119 U/L (46-116); ASPARTATE AMINOTRANSFERASE 18 U/L (15-37); BILIRUBIN,DIRECT 0.1 mg/dL (0.0-0.2); BILIRUBIN,TOTAL 0.1 mg/dL (0.2-1.0); TOTAL PROTEIN, SERUM 8.3 g/dL (6.4-8.2)
[2021-04-05] MEDS ORDERED: ENOXAPARIN SODIUM 60 MG/0.6 ML DISP.SYRIN SQ ONE ×2 (05:14→05:30)
[2021-04-05] MEDS ORDERED: TRAMADOL HCL 50 MG TABLET PO PRN (05:30)
[2021-04-05] MEDS ORDERED: BISACODYL SUPP (10 MG) 10 MG/SUPP.RECT SUPP.RECT RC PRN (05:30)
[2021-04-05] MEDS ORDERED: ACETAMINOPHEN 325 MG TABLET PO PRN ×2 (05:30→11:30)
--- NOTE | 2021-04-05 05:38 | NUR ---
COVID SWAB COLLECTED, SENT TO LAB
--- NOTE | 2021-04-05 05:55 | NUR ---
DR. SHEIKH OF [facility] ON THE PHONE TALKING TO DR. ROSAS
[2021-04-05] MEDS ORDERED: GLUCAGON,HUMAN RECOMBINANT 1 MG/VIAL VIAL IM PRN (07:00)
--- NOTE | 2021-04-05 09:07 | NUR ---
[facility] CALLED ASKING FOR COVID RESULT FOR PT. DOCTOR WILL NOW ADMIT.
--- NOTE | 2021-04-05 09:15 | NUR ---
ADMITTING CALLED PER CM ABEBA PT HAS AUTH TO STAY.
--- NOTE | 2021-04-05 09:37 | NUR ---
[facility] CALLED SUPERVISORY FORESTER PAGED.
[2021-04-05] MEDS ORDERED: SENNOSIDES/DOCUSATE SODIUM 1 UDTAB TABLET PO SCH (11:00)
[2021-04-05] MEDS ORDERED: FAMOTIDINE (20 MG) 20 MG TABLET PO SCH (11:00)
[2021-04-05] MEDS ORDERED: MAGNESIUM HYDROXIDE 30 ML UDC PO PRN (11:30)
[2021-04-05] MEDS ORDERED: ZOLPIDEM TARTRATE 5 MG TABLET PO PRN (11:30)
[2021-04-05] MEDS ORDERED: ONDANSETRON HCL/PF 4 MG/2 ML VIAL IVP PRN (11:30)
[2021-04-05] MEDS ORDERED: MAG HYDROX/AL HYDROX/SIMETH 30 ML UDC PO PRN (11:30)
[2021-04-05] MEDS ORDERED: HYDROCODONE/APAP 5/325MG TABLET PO PRN (11:30)
[2021-04-05] MEDS ORDERED: ENOXAPARIN SODIUM 30 MG/0.3 ML DISP.SYRIN SQ SCH (11:30)
[2021-04-05] MEDS ORDERED: Z GUARD REMEDY 2 OZ OINT TP PRN (11:30)
--- NOTE | 2021-04-05 11:44 | NUR ---
TELE 320.1
--- NOTE | 2021-04-05 11:52 | NUR ---
REPORT GIVEN TO MICHELLE LITTLEJOHN FOR DEBORA.
--- NOTE | 2021-04-05 12:30 | NUR ---
ART GALLERY INTERNSHIP ADMITTING NOTES RECEIVED PATIENT FROM [facility] BRITNEY SPARROW, ACCOMPANIED BY MINE LITTLEJOHN. PATIENT IS AWAKE, ALERT AND ORIENTED X 1. ON ROOM AIR TOLERATING WELL. IN NO ACUTE DISTRESS NOTED. VITAL SIGNS TAKEN AND RECORDED. IV ACCESS ON RIGHT AC G#18, PATENT AND FLUSHES WELL, HOOKED TO TELE MONITOR READING SHOWS SR HR AT 80'S. SKIN ISSUES IDENTIFIED, PICTURES TAKEN AND FILED TO CHART. WOUND CARE CONSULT TRIGGERED. CALLED SON MAIKOL COLINDRES FOR SOME NEEDED INFORMATION. SAFETY PRECAUTIONS IN PLACE: BED ON LOWEST LOCKED POSITION, SIDE RAILS UP X 2, KEPT CALL LIGHT WITHIN EASY REACH. WILL CONTINUE TO MONITOR ACCORDINGLY.
--- NOTE | 2021-04-05 12:45 | NUR ---
RN NOTES VERBAL CONSENT FOR NM PULMONARY PERFUSION OBTAINED C/O AICHA LASSITER WITH 2 RN WITNESSES. CONSENT FILED TO CHART.
[2021-04-05] MEDS: ENOXAPARIN SODIUM 40 MG/0.4 ML DISP.SYRIN SQ SCH (13:40)
[2021-04-05] MEDS: CALCIUM ACETATE 667 MG CAP/TAB PO SCH ×2 (13:40→17:18)
--- NOTE | 2021-04-05 15:20 | NUR ---
RN NOTES PATIENT NOTED WITH CHANGE IN LOC, PATIENT UNRESPONSIVE, RR BELOW 8. VITAL SIGNS FOLLOWS TEMP 97.6, OR 82, RR 7, BP 82/49, O2 SATURATION 90%. SINUS RHYTHM, BS 299. CHARGE NURSE INFORMED, RAPID RESPONSE ACTIVATED. RAPID RESPONSE ARRIVED AT 1523. PATIENT PLACED ON O2 VIA MASK, HOOKED TO BENCH HAND, ABG DONE C/O RT. PATIENT WAS THEN TRANSFERRED TO ICU WITH THE RAPID RESPONSE TEAM. REPORT GIVEN TO CHARLA FOR DEBORA. INFORMED MAIKOL (SON) ABOUT PATIENT'S TRANSFER TO ICU.
[2021-04-05 15:31] LABS: ABG BASE EXCESS -2.7 mmol/L; ABG OXYGEN SATURATION 99.8 % (92.0-98.5); ABG PCO2 36.9 mmHg (35.0-45.0); ABG PH 7.393 (7.350-7.450); ABG PO2 334.8 mmHg (75.0-100.0); AaDO2 341.3 mmHg; COHb 1.3 % (0.5-1.5); MetHb 0.3 % (0.0-1.5); O2Hb 98.2 % (94.0-97.0); SITE, ABG Right Radial; VENT MODE, BG 15 LPM NRB
[2021-04-05] MEDS ORDERED: NALOXONE HCL 0.4 MG/ML AMPUL ONE (15:31)
--- NOTE | 2021-04-05 15:40 | NUR ---
PT ARRIVED IN ICU, ROOM 254 S/P RAPID RESPONSE AT 1527. PER REPORT PT WAS DIFFICULT TO AROUSE AND BARELY BREATHING. NARCAN GIVEN PER MD ORDERS AT 1530. PT BECAME SLIGHTLY MORE ALERT AFTER NARCAN ADMINISTRATION. PER MED ADMINISTRATION CHARTING PT WAS GIVEN DILAUDID 0.5 AND ATIVAN 11 HOURS PRIOR, NO NARCOTIC ADMINISTRATION CHARTED AFTER. DR. HILARIO CHUN AT BEDSIDE. STAT CT OF HEAD W/O CONTRAST ORDERED.
--- NOTE | 2021-04-05 15:48 | NUR ---
PT TAKEN TO STAT CT OF HEAD W/O CONTRAST AT THIS TIME. PT PUT ON 15L NRB FOR TRANSPORT TO CT. RN ACCOMPANIED PATIENT WITH TRANSPORT MONITOR.
[2021-04-05] MEDS ORDERED: LEVETIRACETAM (500MG) 1,000 MG in IV NS 0.9% 100 ML IV ONE (16:00)
[2021-04-05] MEDS: ASPIRIN 81 MG TAB.CHEW PO SCH (16:28)
[2021-04-05] MEDS: ASCORBIC ACID 500 MG TABLET PO SCH (16:29)
[2021-04-05] MEDS: MULTIVIT W/MINERALS 1 TAB TABLET PO SCH (16:29)
[2021-04-05] MEDS: AMLODIPINE BESYLATE 10 MG TABLET PO SCH (16:29)
[2021-04-05] MEDS: ACIDOPHILUS/BULGARICUS 1 EACH TAB.CHEW PO SCH (16:29)
[2021-04-05] MEDS: FERROUS SULFATE (325 MG) 325 MG/TAB TABLET PO SCH (16:29)
[2021-04-05] MEDS: ZINC SULFATE 220 MG CAPSULE PO SCH (16:30)
[2021-04-05] MEDS ORDERED: BUMETANIDE INJ 4 MG in IV NS 0.9% 24 ML IV ONE (17:00)
[2021-04-05] MEDS: CITRIC ACID/SODIUM CITRATE (BICITRA)15 ML UDC PO SCH (17:00)
[2021-04-05] MEDS ORDERED: CEFEPIME 2 GM in IV D5W 100 ML IV SCH (18:00)
[2021-04-05] MEDS: NOREPINEPHRINE 8 MG in IV NS 0.9% 242 ML IV PRN (18:27)
[2021-04-05] MEDS: VANCOMYCIN 500 MG in IV D5W 100 ML IV SCH (18:41)
--- NOTE | 2021-04-05 19:30 | NUR ---
END OF SHIFT NOTE: PT REMAINS LETHARGIC. ON BIPAP AT THIS TIME. CT OF HEAD DONE PER MD ORDERS. LEVOPHED GTT STARTED AT 1836 FOR LOW BP. PICC LINE ORDERED, TELEPHONE CONSENT FROM SON RECEIVED AND ON CHART. BUMEX GTT INFUSING PER MD ORDERS. PT IS NOW STRICT NPO PER MD ORDERS, NO PO MEDS TO BE GIVEN. NO SEIZURE ACTIVITY NOTED SINCE ARRIVING IN ICU. PT CHECKED ON HOURLY AND PRN BY NURSING STAFF.
--- NOTE | 2021-04-05 19:38 | NUR ---
PT ON BIPAP NO DISTRESS. PT SLEEPING. O2 SAT 100%. FIO2 TITRATED TO 30% RN NOTIFIED.
--- NOTE | 2021-04-05 20:05 | NUR ---
RN NOTE RECEIVED PT ON BIPAP 06/17 R4 FIO2 AT 40%, TITRATED TO 30% BY RT. NO SIGNS OF DISTRESS NOTED. PT RESPONDS BY MOANING AND OPENING EYES TO VERBAL STIMULI. PT ON LEVO 0.1MCG/KG/MIN, BUMEX RUNNING AT 10ML/HR. NO SIGNS OF INFILTRATION NOTED. MIDLINE INSERTED ON TREV BY PICC LINE NURSE. SONG CATHETER INSERTED ORDERED, NOTED WITH CLOUDY URINE OUTPUT. NOTED WITH REDNESS ON PERINEAL AND MASD ON SACRUM. WOUND DRESSING ON FEET INTACT. WILL CONTINUE TO MONITOR.
[2021-04-05 21:01] LABS: BILIRUBIN,URINE NEGATIVE (NEGATIVE); COLOR,URINE YELLOW (YELLOW); LEUKOCYTE ESTERASE ,URINE MODERATE (NEGATIVE); NITRITE, URINE NEGATIVE (NEGATIVE); PROTEIN,URINE 100 mg/dl (NEGATIVE); UGLUCOSE NEGATIVE (NEGATIVE); UROBILINOGEN,URINE 0.2 EU/dL (0.2)
[2021-04-05 21:12] LABS: RBC,URINE TOO NUMEROUS TO COUN /HPF (0-2)
[2021-04-05 21:13] LABS: BACTERIA,URINE 3+ /HPF (None Seen); SQUAMOUS EPITHELIAL CELL,UR 0-2 /HPF (None Seen); WBC,URINE 81-100 /HPF (0-3)
[2021-04-05] MEDS ORDERED: ATORVASTATIN 40 MG TABLET PO SCH (22:00)
--- NOTE | 2021-04-05 22:20 | NUR ---
RN NOTE PT ON NPO WITH ORDER TO HOLD OFF PO MEDS. PT ON KEPPRA, MAINTENANCE REPAIRER DAVIS NOTIFIED. ORDER TO INSERT NGT AND ADMINISTER PO MEDS VIA NGT.
[2021-04-05] MEDS: LEVETIRACETAM (250 MG) 250 MG TABLET PO SCH (22:37)
--- NOTE | 2021-04-05 22:40 | NUR ---
RN NOTE LACTIC ACID 12.1 REPORTED TO CCTV TECHNICIAN DAVIS, NO NEW ORDER MADE. PT CURRENTLY ON IV ATB.
--- NOTE | 2021-04-05 22:48 | NUR ---
RN NOTE NGT INSERTED BY CHARGE NURSE, AUSCULTATED FOR PATENCY/PLACEMENT. HELD TRANDATE. PT BP LOW CURRENTLY ON LEVOPHED DRIP. OTHER DUE MEDS WERE GIVEN VIA NGT. WILL CONTINUE TO MONITOR.
[2021-04-06] VITALS (48 sets, daily range): BP systolic 26–140; BP diastolic 13–87
--- NOTE | 2021-04-06 01:15 | NUR ---
RN NOTE PT NOTED WITH DARK BROWN COLORED GASTRIC RESIDUALS FROM NGT, NOTIFIED DATABASE ADMINISTRATION MANAGER DAVIS, CAME TO SEE PT. WITH NEW ORDER OF PROTONIX. ALSO NOTIFIED REGARDING PTS LOW TEMP, OBTAINED AN ORDER FOR ZAINAB LIM.
[2021-04-06] MEDS: NOREPINEPHRINE 8 MG in IV NS 0.9% 242 ML IV PRN ×4 (01:45→09:58)
[2021-04-06] MEDS: PANTOPRAZOLE 40 MG VIAL IV SCH ×2 (01:47→12:40)
--- NOTE | 2021-04-06 02:33 | NUR ---
RN NOTE CHAR BELT OPERATOR DAVIS ORDERED TO CONNECT NGT TO SUCTION LOW INTERMITTENT.
--- NOTE | 2021-04-06 04:00 | NUR ---
RN NOTE PT WITH EPISODES OF BITING OFF BIPAP MASK, ABLE TO SAY HER NAME. REORIENTED PT. NOT IN ANY DISTRESS.
[2021-04-06] MEDS ORDERED: NOREPINEPHRINE 8MG/250ML RTU 250 ML IV ONE (05:04)
[2021-04-06 05:10] LABS: CALCIUM, SERUM 8.3 mg/dL (8.5-10.1); MAGNESIUM 3.2 mg/dL (1.8-2.4)
[2021-04-06 05:13] LABS: THYROID STIMULATING HORMONE 5.856 uIU/mL (0.358-3.74)
[2021-04-06 05:56] LABS: POTASSIUM 7.7 mmol/L (3.5-5.1)
[2021-04-06 05:57] LABS: PHOSPHORUS 9.1 mg/dL (2.5-4.9)
--- NOTE | 2021-04-06 06:15 | NUR ---
RN NOTE CRITICAL LABS REPORTED TO DYE OPERATOR DAVIS, K 7.7, CO2 7, PHOS 9.1. ORDERED TO GIVE KAYEXALATE 30 GM X1 VIA NGT. DYE OPERATOR AWARE OF GASTRIC SUCTION BLOODY OUTPUT OF 650ML.
[2021-04-06 06:28] LABS: BASOPHILS % (AUTO) 0.1 % (0.0-2.0); HEMATOCRIT 23 % (33-45); LYMPHOCYTES # (AUTO) 2.9 K/uL (0.8-4.8); LYMPHOCYTES % (AUTO) 12.2 % (20.0-44.0); MEAN CORPUSCULAR HGB CONC 26 g/dl (31.0-36.0); MEAN CORPUSCULAR VOLUME 105 fL (82-100); MONOCYTES # (AUTO) 1.5 K/uL (0.1-1.30); MONOCYTES % (AUTO) 6.1 % (2.0-12.0); NEUTROPHILS # (AUTO) 19.6 K/uL (1.8-8.9); NEUTROPHILS % (AUTO) 81.6 % (43.0-81.0); PLATELET COUNT (AUTO) 320 K/uL (150-450); RED BLOOD CELL COUNT(AUTO) 2.23 MIL/uL (4.0-5.2)
[2021-04-06] MEDS: VANCOMYCIN 500 MG in IV D5W 100 ML IV SCH (06:29)
[2021-04-06] MEDS ORDERED: SODIUM POLYSTYRENE SULFONATE 15 G/60 ML BOTTLE NG ONE (06:30)
[2021-04-06 06:33] LABS: HEMOGLOBIN 6.1 g/dL (11.5-14.8)
[2021-04-06] MEDS: PHENYLEPHRINE 50 MG in IV NS 0.9% 245 ML IV PRN ×2 (07:06→11:28)
[2021-04-06] MEDS ORDERED: SODIUM BICARBONATE SYR 50 MEQ/50 ML DISP.SYRIN IV STA (07:24)
--- NOTE | 2021-04-06 07:25 | NUR ---
OPENING NOTE: BEDSIDE REPORT RECEIVED FROM SELENE LITTLEJOHN. PT MAX'D ON LEVOPHED, STARTED ON DARIUS-SYNEPHRINE. ABG'S DRAWN AT THIS TIME, WAITING FOR RESULTS. PT MINIMALLY RESPONSIVE. SONG CATHETER WAS INSERTED LAST NIGHT DRAINING THICK LIGHT BROWN FLUID. NG TUBE TO SUCTION WITH 600ML OF BLOOD FROM ABD.
[2021-04-06] MEDS ORDERED: SODIUM BICARBONATE SYR 50 MEQ/50 ML DISP.SYRIN ONE (07:27)
[2021-04-06 07:30] LABS: ABG BASE EXCESS -28.6 mmol/L; ABG OXYGEN SATURATION 93.4 % (92.0-98.5); ABG PCO2 37.5 mmHg (35.0-45.0); ABG PH 6.688 (7.350-7.450); ABG PO2 133.7 mmHg (75.0-100.0); AaDO2 36.1 mmHg; COHb 0.4 % (0.5-1.5); MetHb 0.8 % (0.0-1.5); O2Hb 92.3 % (94.0-97.0); SITE, ABG Left Femoral
[2021-04-06] MEDS ORDERED: PANTOPRAZOLE 40 MG TABLET.DR PO SCH (07:30)
--- NOTE | 2021-04-06 07:33 | NUR ---
ABG RESULTS CALLED TO DR. TANNER AND DR. HILL. ORDER FOR INTUBATION RECEIVED FROM DR TANNER. NURSING FIELD ASSOCIATE NOTIFIED OF ORDER, SHE WILL NOTIFY ER.
--- NOTE | 2021-04-06 07:45 | NUR ---
ER MD DR MULLINS INTUBATED PATIENT, 7.5 ETT. SUCCS 10MG AND 120MG ETOMIDATE GIVEN PRIOR TO INTUBATION. INITAL VENT SETTINGS AC 28, 100%, TV 400 NO PEEP. ABG IN 1 HOUR ORDERED.
--- NOTE | 2021-04-06 07:50 | NUR ---
RN NOTE 0645 PTS BP AT 79/55. PT WILL OPEN EYES BUT NOT COMMUNICATING, NOT FOLLOWING ANY COMMANDS. TITRATED LEVOPHED PER PROTOCOL, BP AND HR STILL DROPPING. CHARGE NURSE MADE AWARE. NEOSYNEPHRINE STARTED ORDERED PER PROTOCOL. PT HGB AT 6.1 FINANCE EFFECTIVENESS MANAGER DAVIS ORDERED TO GIVE 2 UNITS OF PRBC AND HOLD LOVENOX. URINE OUTPUT MORE LIKE PUS. ENDORSED PT TO CHARLA FOR DEBORA. Addendum: 04/06/21 at 0803 by SELENE MOORE RN PT CONTINUE WITH ZAINAB LIM. LAST TEMP TAKEN 96.2
--- NOTE | 2021-04-06 07:57 | NUR ---
LEVOPHED AND DARIUS GTTS MAX'D. PT UNRESPONSIVE, BP LOW. STRONG LEFT FEMORAL PULSE NOTED AT THIS TIME
[2021-04-06] MEDS: CALCIUM ACETATE 667 MG CAP/TAB PO SCH ×2 (08:00→12:18)
[2021-04-06] MEDS ORDERED: PROPOFOL 100 ML IV PRN (08:00)
--- NOTE | 2021-04-06 08:07 | NUR ---
WOUND CARE CONSULT: PT NOT SEEN FOR SKIN ASSESSMENT DUE TO PT JUST INTUBATED PER RN. REVIEWED CHART, NURSING DOCUMENTATION AND PHOTOS WHICH INDICATE LOWER EXTREMITY WOUNDS AND SACRAL SCARRING, PRESENT ON ADMISSION. DR CHAUDHARY NOTIFIED OF PT ADMISSION FOR DPM CONSULT. RECOMMENDATIONS MADE FOR SKIN PROTECTION. DISCUSSED WITH NURSING STAFF. IN AGREEMENT WITH PLAN OF CARE.
--- NOTE | 2021-04-06 08:10 | NUR ---
RN CALLED PT'S SON MAIKOL, INFORMED HIM OF PT GETTING INTUBATED AND CURRENT SITUATION. MAIKOL STATED HE WANTED EVERYTHING DONE, WANTS PT TO REMAIN FULL CODE AND HE IS ON HIS WAY TO THE HOSPITAL.
[2021-04-06] MEDS ORDERED: DEXTROSE 50%-WATER 50 ML DISP.SYRIN IVP STA (08:18)
[2021-04-06] MEDS ORDERED: ALBUTEROL FS 2.5 MG/3 ML VIAL.NEB NEB STA ×2 (08:18→11:31)
[2021-04-06] MEDS ORDERED: SODIUM BICARBONATE SYR 50 MEQ/50 ML DISP.SYRIN IV ONE ×2 (08:30→12:30)
[2021-04-06] MEDS ORDERED: VASOPRESSIN INJ 40 UNIT in IV NS 0.9% 38 ML IV PRN (08:30)
[2021-04-06] MEDS ORDERED: INSULIN REGULAR, HUMAN 100 UNIT/ML 3 ML VIAL SQ ONE (08:30)
[2021-04-06] MEDS: HYDROCORTISONE SOD SUCCINATE 100 MG/2 ML VIAL IV SCH ×2 (08:30→12:40)
--- NOTE | 2021-04-06 08:35 | NUR ---
PT CONTINUES TO BE UNRESPONSIVE FROM INTUBATION. STRONG RIGHT FEMORAL PULSE NOTED AT THIS TIME
[2021-04-06] MEDS: LEVETIRACETAM (250 MG) 250 MG TABLET PO SCH (09:00)
[2021-04-06] MEDS: ENOXAPARIN SODIUM 40 MG/0.4 ML DISP.SYRIN SQ SCH (09:00)
[2021-04-06] MEDS: MULTIVIT W/MINERALS 1 TAB TABLET PO SCH (09:00)
[2021-04-06] MEDS: AMLODIPINE BESYLATE 10 MG TABLET PO SCH (09:00)
[2021-04-06] MEDS: ZINC SULFATE 220 MG CAPSULE PO SCH (09:00)
[2021-04-06] MEDS: ASCORBIC ACID 500 MG TABLET PO SCH (09:00)
[2021-04-06] MEDS: ASPIRIN 81 MG TAB.CHEW PO SCH (09:00)
[2021-04-06] MEDS ORDERED: SENNOSIDES/DOCUSATE SODIUM 1 TAB TABLET PO SCH (09:00)
[2021-04-06] MEDS: FERROUS SULFATE (325 MG) 325 MG/TAB TABLET PO SCH (09:00)
[2021-04-06] MEDS: ACIDOPHILUS/BULGARICUS 1 EACH TAB.CHEW PO SCH (09:00)
[2021-04-06] MEDS: CITRIC ACID/SODIUM CITRATE (BICITRA)15 ML UDC PO SCH (09:00)
[2021-04-06] MEDS ORDERED: SUCCINYLCHOLINE CHLORIDE 20 MG/ML VIAL ONE (09:15)
[2021-04-06] MEDS ORDERED: ETOMIDATE 2 MG/ML VIAL ONE (09:15)
[2021-04-06 09:23] LABS: ABG BASE EXCESS -22.1 mmol/L; ABG OXYGEN SATURATION 99.9 % (92.0-98.5); ABG PCO2 22.3 mmHg (35.0-45.0); ABG PH 7.055 (7.350-7.450); ABG PO2 570.4 mmHg (75.0-100.0); AaDO2 120.3 mmHg; COHb 1.2 % (0.5-1.5); MetHb 0.3 % (0.0-1.5); O2Hb 98.4 % (94.0-97.0); SITE, ABG Left Femoral
--- NOTE | 2021-04-06 09:28 | NUR ---
PT WAKING UP, CALM, NODDING TO SIMPLE QUESTIONS. PROPOFOL STARTED PER PROTOCOL AND MD ORDERS
[2021-04-06 09:37] LABS: BAND % (MANUAL) 3 % (0.0-5.0); BASOPHILS % (MANUAL) 1 % (0.0-2.0); LYMPHOCYTES % (MANUAL) 14 % (16-48); MONOCYTES % (MANUAL) 6 % (0-11.0); NEUTROPHILS % (MANUAL) 76 (42-76)
[2021-04-06] MEDS ORDERED: PHENYLEPHRINE 100 MG in IV NS 0.9% 240 ML IV PRN ×2 (11:30→13:00)
[2021-04-06] MEDS ORDERED: NOREPINEPHRINE 32 MG in IV NS 0.9% 218 ML IV PRN (11:30)
[2021-04-06] MEDS ORDERED: SODIUM POLYSTYRENE SULFONATE 15 G/60 ML BOTTLE PO ONE (11:30)
--- NOTE | 2021-04-06 11:45 | NUR ---
DR. CHUN SPOKE TO PATIENTS SON, BROTHER AND SISTER ABOUT LUMBAR PUNCTURE PROCEDURE. VERBAL CONSENT FOR LUMBAR PUNCTURE RECEIVED FROM PT'S SON MAIKOL. LUMBER PUNCTURE DONE AT BEDSIDE WITHOUT DIFFICULTY. RN ASSISTED TO HELP MAINTAIN AIRWAY AND MONITOR VS.
--- NOTE | 2021-04-06 12:00 | NUR ---
DR CHUN REPLACED RIGHT UPPER ARM MIDLINE WITH A TRIPLE LUMEN PICC LINE WITHOUT DIFFICULTY AT THIS TIME, AWAITING XRAY RESULTS.
[2021-04-06 12:18] LABS: ABG BASE EXCESS -24.8 mmol/L; ABG OXYGEN SATURATION 99.7 % (92.0-98.5); ABG PCO2 16.1 mmHg (35.0-45.0); ABG PH 7.004 (7.350-7.450); ABG PO2 483.7 mmHg (75.0-100.0); AaDO2 213.2 mmHg; COHb 1.7 % (0.5-1.5); MetHb 0.3 % (0.0-1.5); O2Hb 97.7 % (94.0-97.0); SITE, ABG Left Femoral
[2021-04-06] MEDS ORDERED: SODIUM BICARBONATE SYR 150 MEQ in IV D5W 1,000 ML IV PRN (12:30)
--- NOTE | 2021-04-06 13:00 | NUR ---
PICC LINE PULLED BACK 6CM PER MD ORDERS FROM CHEST XRAY RESULTS, NEW DRESSING APPLIED.
--- NOTE | 2021-04-06 13:51 | NUR ---
FAMILY AT BEDSIDE. PT WENT ASYSTOLE, DESHAWN LAUGHLIN CALLED. PT'S BROTHER WAS ON THE PHONE WITH PATIENTS SON MAIKOL. PT'S BROTHER PUT PHONE ON SPEAKER PHONE, PT'S SON MAIKOL STATED HE DID NOT WANT PATIENT CODED, HE WANTED HER TO BE A DNR. DR. TANNER WAS RIGHT NEXT TO RN AND VERIFIED WITH MAIKOL HIS WISHES. DESHAWN LAUGHLIN CANCELLED. TIME OF 1351, PRONOUNCED BY DR. HILARIO CHUN AND NOTED BY DR. TANNER.
--- NOTE | 2021-04-06 15:45 | NUR ---
FAMILY LEFT. MORTUARY FORM SIGNED. POST MORTEM CARE DONE. MORTUARY WILL SAFETY AND HEALTH CONSULTANT PATIENT FROM [facility].
== END 2021-04-06 13:51 | DRG 720 ==
LOC: ER 03:36 → TRANSITION 10:53 → TELE 11:56 → ICU 15:27
PROC: 5A09357 Assistance with Respiratory Ventilation, Less than 24 Consecutive Hours, Continuous Positive Airway Pressure (ICD-10-PCS; principal; 2021-04-05)
PROC: 05HB33Z Insertion of Infusion Device into Right Basilic Vein, Percutaneous Approach (ICD-10-PCS; 2021-04-05)
PROC: 5A1935Z Respiratory Ventilation, Less than 24 Consecutive Hours (ICD-10-PCS; 2021-04-06)
PROC: 0BH17EZ Insertion of Endotracheal Airway into Trachea, Via Natural or Artificial Opening (ICD-10-PCS; 2021-04-06)
PROC: 009U3ZX Drainage of Spinal Canal, Percutaneous Approach, Diagnostic (ICD-10-PCS; 2021-04-06)
PROC: 02HV33Z Insertion of Infusion Device into Superior Vena Cava, Percutaneous Approach (ICD-10-PCS; 2021-04-06)
PROC: B548ZZA Ultrasonography of Superior Vena Cava, Guidance (ICD-10-PCS; 2021-04-06)
DX: A41.9 Sepsis, unspecified organism (principal); R65.21 Severe sepsis with septic shock; G92 Toxic encephalopathy; J96.02 Acute respiratory failure with hypercapnia; J96.01 Acute respiratory failure with hypoxia; D62 Acute posthemorrhagic anemia; G91.9 Hydrocephalus, unspecified; E87.2 Acidosis; I42.9 Cardiomyopathy, unspecified; I48.91 Unspecified atrial fibrillation; E86.1 Hypovolemia; E11.22 Type 2 diabetes mellitus with diabetic chronic kidney disease; E11.51 Type 2 diabetes mellitus with diabetic peripheral angiopathy without gangrene; G89.29 Other chronic pain; N18.30 Chronic kidney disease, stage 3 unspecified; Z86.73 Personal history of transient ischemic attack (TIA), and cerebral infarction without residual deficits; F02.80 Dementia in other diseases classified elsewhere, unspecified severity, without behavioral disturbance, psychotic disturbance, mood disturbance, and anxiety; G30.9 Alzheimer's disease, unspecified; K21.9 Gastro-esophageal reflux disease without esophagitis; Z90.49 Acquired absence of other specified parts of digestive tract; Z20.822 Contact with and (suspected) exposure to COVID-19; Z89.429 Acquired absence of other toe(s), unspecified side; Z88.5 Allergy status to narcotic agent; Z79.82 Long term (current) use of aspirin; Z79.4 Long term (current) use of insulin; Z79.899 Other long term (current) drug therapy; N39.0 Urinary tract infection, site not specified; Z87.11 Personal history of peptic ulcer disease; E87.5 Hyperkalemia; J44.9 Chronic obstructive pulmonary disease, unspecified; F17.200 Nicotine dependence, unspecified, uncomplicated; G93.89 Other specified disorders of brain; R56.9 Unspecified convulsions; I67.2 Cerebral atherosclerosis; J98.11 Atelectasis; Z66 Do not resuscitate; Z98.890 Other specified postprocedural states; E87.6 Hypokalemia; I12.9 Hypertensive chronic kidney disease with stage 1 through stage 4 chronic kidney disease, or unspecified chronic kidney disease
CPT/HCPCS: 36410; 36415; 36569; 36600; 70450-TC; 71045-TC; 72128-TC; 80048-TC; 80061-TC; 80076-TC; 81001; 82728-TC; 82803-TC; 82962-TC; 83540-TC; 83605-TC; 83735-TC; 83880; 84100-TC; 84443-TC; 84484-TC; 85025-TC; 85378-TC; 85730-TC; 86850-TC; 87081-TC; 87086-TC; 93307-TC; 94760-TC; 99082-TC; C9113; C9803; G0378; J0330; J0692; J1170; J1650; J1720; J1815; J1953; J2060; J2310; J2370; J2405; J3370; J3490; J7030; J7050; J7060; J7070